=== PATIENT | female | born 1945 | race Caucasian/White ===

== ENCOUNTER 2016-08-25 20:48 | Inpatient (IN) | payer MEDICARE, OTHER ==
[~2016-08-25] VITALS: Ht 162.6 cm; Wt 75.7 kg
[2016-08-25] MEDS ORDERED: IBUPROFEN 200 MG TABLET PO ONE (21:30)
[2016-08-25] MEDS ORDERED: SODIUM CHLORIDE 0.9% 1,000ML IVBOLUS ONE ×2 (21:30→23:00)
[2016-08-25] MEDS ORDERED: IBUPROFEN 200 MG TABLET ONE (21:45)
[2016-08-25 21:55] LABS: ASPARTATE AMINO TRANSFERASE 122 U/L (15-37); BLOOD UREA NITROGEN 31 mg/dL (7-18)
[2016-08-25] MEDS ORDERED: OMNIPAQUE 350 MG/ML, 100ML BOTTLE ONE (22:00)
[2016-08-25] MEDS ORDERED: METF500T4 PO (22:22)
[2016-08-25] MEDS ORDERED: LISI40TA PO (22:23)
[2016-08-25] MEDS ORDERED: ATOR40TA78 PO (22:23)
[2016-08-25] MEDS ORDERED: AMLO5TAB2 PO (22:23)
[2016-08-25] MEDS ORDERED: CLOP75TA22 PO (22:23)
[2016-08-25] MEDS ORDERED: METO50TA82 PO (22:24)
[2016-08-25] MEDS ORDERED: PIPERACILLIN/TAZO/PMX 4.5GM 100 ML IV ONE (23:00)
[2016-08-26 00:23] VITALS: BP 102/38
[2016-08-26] MEDS ORDERED: BISACODYL 10 MG SUPP PR PRN (00:30)
[2016-08-26] MEDS ORDERED: VANCOMYCIN PER PHARMACY MC PRN ×2 (00:30→15:00)
[2016-08-26] MEDS ORDERED: POLYETHYLENE GLYCOL 17 GM PACKET PO PRN (00:30)
[2016-08-26] MEDS ORDERED: PHARMACOKINETIC MONITORING MC PRN (00:30)
[2016-08-26] MEDS ORDERED: ONDANSETRON 2MG/ML, 2ML IVPush PRN (00:30)
[2016-08-26 00:50] LABS: HEPATITIS C VIRUS ANTIBODY Nonreactive (Nonreactive)
[2016-08-26] MEDS: VANCOMYCIN 1,500 MG in SODIUM CHLORIDE 0.9% 250 ML IV SCH (01:41)
[2016-08-26] MEDS: HEPARIN 5,000 UNITS/ML, 1ML SQ SCH ×3 (01:42→16:36)
[2016-08-26] MEDS: SODIUM CHLORIDE 0.9% 1,000 ML IV SCH ×5 (01:42→21:47)
[2016-08-26 03:00] VITALS: BP 80/41
[2016-08-26 05:52] LABS: BLOOD UREA NITROGEN 29 mg/dL (7-18)
[2016-08-26 05:56] LABS: ASPARTATE AMINO TRANSFERASE 69 U/L (15-37)
[2016-08-26] MEDS: PIPERACILLIN/TAZO/PMX 3.375GM 50 ML IV SCH ×3 (06:28→18:03)
[2016-08-26 06:59] LABS: DIFF TOTAL CELLS COUNTED 100 CELL DIFF
[2016-08-26 07:02] LABS: LARGE PLATELETS 1+; VERIFY COUNTS? YES
[2016-08-26 08:00] VITALS: BP 97/47
[2016-08-26] MEDS: CLOPIDOGREL 75 MG TABLET PO SCH (08:18)
[2016-08-26] MEDS: SENNA/DOCUSATE TABLET PO SCH (08:18)
[2016-08-26 13:35] VITALS: BP_SYST 99; BP_DIAS 51; BP_DIAS 91
[2016-08-26 20:21] VITALS: BP 114/50
[2016-08-27] MEDS: PIPERACILLIN/TAZO/PMX 3.375GM 50 ML IV SCH ×4 (00:18→18:18)
[2016-08-27] MEDS: HEPARIN 5,000 UNITS/ML, 1ML SQ SCH ×3 (00:23→16:45)
[2016-08-27] MEDS: VANCOMYCIN 1,500 MG in SODIUM CHLORIDE 0.9% 250 ML IV SCH (02:24)
[2016-08-27 03:04] VITALS: BP 108/49
[2016-08-27 05:14] LABS: BLOOD UREA NITROGEN 23 mg/dL (7-18)
[2016-08-27 05:19] LABS: ASPARTATE AMINO TRANSFERASE 63 U/L (15-37)
[2016-08-27] MEDS: SODIUM CHLORIDE 0.9% 1,000 ML IV SCH ×2 (06:44→16:45)
[2016-08-27] MEDS: SENNA/DOCUSATE TABLET PO SCH (09:20)
[2016-08-27] MEDS: CLOPIDOGREL 75 MG TABLET PO SCH (09:20)
[2016-08-27] MEDS: ONDANSETRON 2MG/ML, 2ML IVPush PRN (10:45)
[2016-08-28] MEDS: PIPERACILLIN/TAZO/PMX 3.375GM 50 ML IV SCH ×2 (00:35→06:15)
[2016-08-28] MEDS: SODIUM CHLORIDE 0.9% 1,000 ML IV SCH ×4 (01:00→20:35)
[2016-08-28] MEDS: VANCOMYCIN 1,500 MG in SODIUM CHLORIDE 0.9% 250 ML IV SCH (01:40)
[2016-08-28] MEDS: HEPARIN 5,000 UNITS/ML, 1ML SQ SCH ×3 (04:28→12:17)
[2016-08-28] MEDS: CLOPIDOGREL 75 MG TABLET PO SCH (09:30)
[2016-08-28] MEDS: SENNA/DOCUSATE TABLET PO SCH (09:30)
[2016-08-28 13:20] VITALS: BP 113/73
[2016-08-28] MEDS ORDERED: ERTAPENEM 1 GM in SODIUM CHLORIDE 0.9% 50 ML IV SCH (15:30)
[2016-08-28] MEDS: LACTOBACILLUS CHEW TABLET PO SCH ×2 (18:31→20:35)
[2016-08-28] MEDS ORDERED: OMNIPAQUE 350 MG/ML, 100ML BOTTLE ONE (18:37)
[2016-08-28 18:41] VITALS: BP 142/78
[2016-08-29] MEDS: HEPARIN 5,000 UNITS/ML, 1ML SQ SCH ×3 (00:36→16:09)
[2016-08-29] MEDS: ONDANSETRON 2MG/ML, 2ML IVPush PRN (01:24)
[2016-08-29 01:50] VITALS: BP 137/78
[2016-08-29] MEDS: SODIUM CHLORIDE 0.9% 1,000 ML IV SCH (04:35)
[2016-08-29 05:54] LABS: ASPARTATE AMINO TRANSFERASE 33 U/L (15-37); BLOOD UREA NITROGEN 10 mg/dL (7-18)
[2016-08-29 06:13] LABS: ACETAMINOPHEN < 2 mcg/mL (10-30)
[2016-08-29 06:50] VITALS: BP 118/68
[2016-08-29] MEDS: SENNA/DOCUSATE TABLET PO SCH (08:48)
[2016-08-29] MEDS: CLOPIDOGREL 75 MG TABLET PO SCH (08:49)
[2016-08-29] MEDS: LACTOBACILLUS CHEW TABLET PO SCH ×3 (08:49→20:49)
[2016-08-29 14:32] VITALS: BP 130/76
[2016-08-29] MEDS: ERTAPENEM 1 GM in SODIUM CHLORIDE 0.9% 100 ML IV SCH (16:46)
[2016-08-29 18:41] VITALS: BP 159/81
[2016-08-29 20:55] LABS: ASPARTATE AMINO TRANSFERASE 34 U/L (15-37); BLOOD UREA NITROGEN 15 mg/dL (7-18)
[2016-08-30] MEDS: HEPARIN 5,000 UNITS/ML, 1ML SQ SCH ×2 (00:23→08:30)
[2016-08-30 01:05] VITALS: BP 148/75
[2016-08-30 05:58] LABS: BLOOD UREA NITROGEN 8 mg/dL (7-18)
[2016-08-30 07:52] VITALS: BP 172/81
[2016-08-30] MEDS ORDERED: METOPROLOL TARTRATE 50 MG TABLET PO SCH (09:00)
[2016-08-30] MEDS ORDERED: AMLODIPINE 5 MG TABLET PO SCH (09:00)
[2016-08-30] MEDS: CLOPIDOGREL 75 MG TABLET PO SCH (09:45)
[2016-08-30] MEDS: METOPROLOL TARTRATE 50 MG TABLET PO SCH ×2 (09:45→17:32)
[2016-08-30] MEDS: SENNA/DOCUSATE TABLET PO SCH (09:46)
[2016-08-30] MEDS: AMLODIPINE 5 MG TABLET PO SCH ×2 (09:46→20:08)
[2016-08-30] MEDS: LISINOPRIL 20 MG TABLET PO SCH (09:46)
[2016-08-30] MEDS: LACTOBACILLUS CHEW TABLET PO SCH ×3 (09:46→20:07)
[2016-08-30] MEDS: metFORMIN 500 MG TABLET PO SCH ×2 (11:00→20:08)
[2016-08-30 13:36] VITALS: BP 155/85
[2016-08-30] MEDS: ERTAPENEM 1 GM in SODIUM CHLORIDE 0.9% 100 ML IV SCH (17:27)
[2016-08-30 20:11] VITALS: BP 156/65
[2016-08-31 02:30] VITALS: BP 150/72
[2016-08-31 05:07] LABS: BLOOD UREA NITROGEN 6 mg/dL (7-18)
[2016-08-31 05:25] LABS: ASPARTATE AMINO TRANSFERASE 34 U/L (15-37)
[2016-08-31] MEDS: METOPROLOL TARTRATE 50 MG TABLET PO SCH ×3 (06:00→17:58)
[2016-08-31] MEDS: ONDANSETRON 2MG/ML, 2ML IVPush PRN (06:49)
[2016-08-31 07:37] VITALS: BP 143/87
[2016-08-31] MEDS ORDERED: ERTA1VIA IV (08:48)
[2016-08-31] MEDS ORDERED: POTASSIUM CHLORIDE 20 MEQ TAB.ER.PRT PO ONE (09:00)
[2016-08-31] MEDS: SENNA/DOCUSATE TABLET PO SCH (09:00)
[2016-08-31] MEDS: LISINOPRIL 20 MG TABLET PO SCH (09:06)
[2016-08-31] MEDS: CLOPIDOGREL 75 MG TABLET PO SCH (09:06)
[2016-08-31] MEDS: AMLODIPINE 5 MG TABLET PO SCH (09:07)
[2016-08-31] MEDS: LACTOBACILLUS CHEW TABLET PO SCH ×2 (09:07→17:00)
[2016-08-31] MEDS: metFORMIN 500 MG TABLET PO SCH (09:07)
[2016-08-31 13:50] VITALS: BP 112/71
[2016-08-31] MEDS: ERTAPENEM 1 GM in SODIUM CHLORIDE 0.9% 100 ML IV SCH (16:56)
[2016-08-31 18:43] VITALS: BP 133/84
[2016-08-31 18:53] VITALS: BP 169/81
[2016-08-31 20:01] VITALS: BP 143/70
== END 2016-08-31 20:25 | disposition home or self-care (01) | DRG 871 ==
LOC: ED 22:52 → EDIP 23:15 → 4NOR 08-26 00:05
PROVIDERS: ADMIT Internal Medicine
PROC: B5181ZA Fluoroscopy of Superior Vena Cava using Low Osmolar Contrast, Guidance (ICD-10-PCS; principal; 2016-08-30)
PROC: 02HV33Z Insertion of Infusion Device into Superior Vena Cava, Percutaneous Approach (ICD-10-PCS; 2016-08-30)
PROC: B548ZZA Ultrasonography of Superior Vena Cava, Guidance (ICD-10-PCS; 2016-08-30)
DX: A40.1 Sepsis due to streptococcus, group B (principal); E43 Unspecified severe protein-calorie malnutrition; N17.0 Acute kidney failure with tubular necrosis; K72.00 Acute and subacute hepatic failure without coma; I38 Endocarditis, valve unspecified; D64.9 Anemia, unspecified; D69.6 Thrombocytopenia, unspecified; E78.00 Pure hypercholesterolemia, unspecified; E78.5 Hyperlipidemia, unspecified; E87.6 Hypokalemia; G14 Postpolio syndrome; I11.9 Hypertensive heart disease without heart failure; I35.8 Other nonrheumatic aortic valve disorders; I71.4 Abdominal aortic aneurysm, without rupture; I87.2 Venous insufficiency (chronic) (peripheral); E11.51 Type 2 diabetes mellitus with diabetic peripheral angiopathy without gangrene; J44.9 Chronic obstructive pulmonary disease, unspecified; K57.30 Diverticulosis of large intestine without perforation or abscess without bleeding; K80.20 Calculus of gallbladder without cholecystitis without obstruction; K82.8 Other specified diseases of gallbladder; N21.0 Calculus in bladder; Z82.49 Family history of ischemic heart disease and other diseases of the circulatory system; Z83.3 Family history of diabetes mellitus; Z87.891 Personal history of nicotine dependence; Z79.899 Other long term (current) drug therapy; I73.9 Peripheral vascular disease, unspecified
CPT/HCPCS: 36415; 36569; 71010; 71275; 74177; 76700; 76937; 77001; 80048; 80053; 80074; 80307; 81003; 82977; 83036; 83605; 83880; 84145; 85025; 85610; 85651; 86140; 86704; 86706; 86708; 86803; 87040; 87147; 87181; 87340; 93005; 93306; 96361; 96365; J1335; J1644; J2405; J2543; J3370; Q9967; C1751; J7030; J7050

== ENCOUNTER 2016-10-06 11:26 | Inpatient (IN) | payer MEDICARE ==
[~2016-10-06] VITALS: Ht 162.6 cm; Wt 79.3 kg
[~2016-10-06 11:26] MED LIST: AMLO5TAB2 PO; ATOR40TA78 PO; CLOP75TA22 PO; ERTA1VIA IV; LISI40TA PO; METF500T4 PO; METO50TA82 PO
[2016-10-06] MEDS ORDERED: SODIUM CHLORIDE FLUSH 10ML SYR IVF ONE (12:30)
[2016-10-06 12:46] LABS: ABG COLLECTION SITE RIGHT RADIAL; COLLATERAL CIRCULATION TESTING NORMAL
[2016-10-06 12:56] LABS: ASPARTATE AMINO TRANSFERASE 33 U/L (15-37); BLOOD UREA NITROGEN 16 mg/dL (7-18)
[2016-10-06 13:00] LABS: IS PT STATUS REG ER OR PRE ER? YES
[2016-10-06] MEDS ORDERED: PIPERACILLIN/TAZO/PMX 3.375GM 50 ML IVPB ONE (13:00)
[2016-10-06] MEDS ORDERED: VANCOMYCIN PER PHARMACY MC ONE (13:00)
[2016-10-06] MEDS ORDERED: OMEG1CAP6 PO (13:12)
[2016-10-06] MEDS ORDERED: METO50TA82 PO (13:12)
[2016-10-06] MEDS ORDERED: ALBU8.5H3 INH (13:12)
[2016-10-06] MEDS ORDERED: LANS15CA45 PO (13:12)
[2016-10-06] MEDS ORDERED: MULT1CAP19 PO (13:12)
[2016-10-06] MEDS ORDERED: PIPERACILLIN/TAZO/PMX 3.375GM 50 ML ONE (13:15)
[2016-10-06] MEDS ORDERED: PHARMACOKINETIC CONSULTATION MC ONE (13:30)
[2016-10-06] MEDS ORDERED: VANCOMYCIN 1,300 MG in SODIUM CHLORIDE 0.9% 250 ML IV ONE (13:30)
[2016-10-06 14:53] VITALS: BP 145/74
[2016-10-06] MEDS ORDERED: UMEC62.5 INH (15:55)
[2016-10-06] MEDS ORDERED: morphine SULFATE 10 MG/ML, 1ML IVPush PRN (17:00)
[2016-10-06] MEDS ORDERED: TEMAZEPAM 15 MG CAPSULE PO PRN (17:00)
[2016-10-06] MEDS ORDERED: hydrALAzine 20 MG/ML, 1ML IVPush PRN (17:00)
[2016-10-06] MEDS ORDERED: HYDROcodone/APAP 5/325 TABLET PO PRN (17:00)
[2016-10-06] MEDS ORDERED: ACETAMINOPHEN 325 MG TABLET PO PRN (17:00)
[2016-10-06] MEDS ORDERED: ONDANSETRON 2MG/ML, 2ML IVPush PRN (17:00)
[2016-10-06] MEDS ORDERED: OMNIPAQUE 350 MG/ML, 100ML BOTTLE ONE (18:52)
[2016-10-06 18:58] VITALS: BP 127/66
[2016-10-06] MEDS: CEFTRIAXONE PMX 1GM/50ML 50 ML IV SCH (20:02)
[2016-10-06] MEDS: ENOXAPARIN 40 MG/0.4 ML SQ SCH (20:03)
[2016-10-06] MEDS: METOPROLOL TARTRATE 50 MG TABLET PO SCH (22:01)
[2016-10-06] MEDS: ATORVASTATIN 40 MG TABLET PO SCH (22:01)
[2016-10-06] MEDS: AMLODIPINE 5 MG TABLET PO SCH (22:01)
[2016-10-06] MEDS: AZITHROMYCIN 500 MG in SODIUM CHLORIDE 0.9% 250 ML IV SCH (22:02)
[2016-10-07 01:20] VITALS: BP 102/54
[2016-10-07] MEDS ORDERED: ALBUTEROL SULFATE 2.5 MG/3 ML ONE (01:36)
[2016-10-07] MEDS ORDERED: ALBUTEROL SULFATE 2.5 MG/3 ML NPPB PRN (02:00)
[2016-10-07 06:44] LABS: ASPARTATE AMINO TRANSFERASE 25 U/L (15-37); BLOOD UREA NITROGEN 13 mg/dL (7-18)
[2016-10-07] MEDS: ALBUTEROL SULFATE 2.5 MG/3 ML NPPB SCH ×2 (07:01→21:20)
[2016-10-07 08:11] VITALS: BP 105/61
[2016-10-07] MEDS: TEMPLATE NON-FORMULARY MED. (Umeclidinium Bromide (Incruse Ellipta) 1 PUFF) INH SCH (08:41)
[2016-10-07] MEDS: METOPROLOL TARTRATE 50 MG TABLET PO SCH ×2 (08:42→20:38)
[2016-10-07] MEDS: AMLODIPINE 5 MG TABLET PO SCH ×2 (08:43→20:38)
[2016-10-07] MEDS: PANTOPROZOLE 40MG TABLET PO SCH (08:43)
[2016-10-07] MEDS: LISINOPRIL 20 MG TABLET PO SCH (08:43)
[2016-10-07] MEDS: CLOPIDOGREL 75 MG TABLET PO SCH (08:43)
[2016-10-07] MEDS: MULTIVITAMIN 1 TABLET PO SCH (08:43)
[2016-10-07 14:26] VITALS: BP 94/54
[2016-10-07] MEDS ORDERED: MAGNESIUM SULFATE PMX 2GM/50ML 50 ML IV ONE (14:30)
[2016-10-07] MEDS ORDERED: POTASSIUM CHLORIDE 20 MEQ TAB.ER.PRT PO ONE (15:00)
[2016-10-07] MEDS ORDERED: FUROSEMIDE 40 MG/4 ML IV ONE (15:00)
[2016-10-07 15:10] VITALS: BP 127/65
[2016-10-07 19:17] VITALS: BP 116/60
[2016-10-07] MEDS: CEFTRIAXONE PMX 1GM/50ML 50 ML IV SCH (20:38)
[2016-10-07] MEDS: ATORVASTATIN 40 MG TABLET PO SCH (20:38)
[2016-10-07] MEDS: ENOXAPARIN 40 MG/0.4 ML SQ SCH (20:38)
[2016-10-07] MEDS: AZITHROMYCIN 500 MG in SODIUM CHLORIDE 0.9% 250 ML IV SCH (22:05)
[2016-10-08 02:54] VITALS: BP 96/53
[2016-10-08 05:07] LABS: BLOOD UREA NITROGEN 16 mg/dL (7-18)
[2016-10-08 07:12] VITALS: BP 105/58
[2016-10-08] MEDS: TEMPLATE NON-FORMULARY MED. (Umeclidinium Bromide (Incruse Ellipta) 1 PUFF) INH SCH (08:29)
[2016-10-08] MEDS: AMLODIPINE 5 MG TABLET PO SCH ×2 (08:29→21:47)
[2016-10-08] MEDS: METOPROLOL TARTRATE 50 MG TABLET PO SCH ×2 (08:29→21:47)
[2016-10-08] MEDS: PANTOPROZOLE 40MG TABLET PO SCH (08:30)
[2016-10-08] MEDS: LISINOPRIL 20 MG TABLET PO SCH (08:30)
[2016-10-08] MEDS: MULTIVITAMIN 1 TABLET PO SCH (08:30)
[2016-10-08] MEDS: CLOPIDOGREL 75 MG TABLET PO SCH (08:30)
[2016-10-08] MEDS: ALBUTEROL SULFATE 2.5 MG/3 ML NPPB SCH ×2 (09:00→20:22)
[2016-10-08 12:37] VITALS: BP 125/72
[2016-10-08 18:59] VITALS: BP 124/61
[2016-10-08] MEDS: ENOXAPARIN 40 MG/0.4 ML SQ SCH (21:47)
[2016-10-08] MEDS: CEFTRIAXONE PMX 1GM/50ML 50 ML IV SCH (21:47)
[2016-10-08] MEDS: ATORVASTATIN 40 MG TABLET PO SCH (21:47)
[2016-10-08] MEDS: AZITHROMYCIN 500 MG in SODIUM CHLORIDE 0.9% 250 ML IV SCH (22:47)
[2016-10-09 00:59] VITALS: BP 94/50
[2016-10-09 08:40] VITALS: BP 136/57
[2016-10-09] MEDS: TEMPLATE NON-FORMULARY MED. (Umeclidinium Bromide (Incruse Ellipta) 1 PUFF) INH SCH (08:45)
[2016-10-09] MEDS: CLOPIDOGREL 75 MG TABLET PO SCH (08:46)
[2016-10-09] MEDS: AMLODIPINE 5 MG TABLET PO SCH (08:46)
[2016-10-09] MEDS: MULTIVITAMIN 1 TABLET PO SCH (08:46)
[2016-10-09] MEDS: METOPROLOL TARTRATE 50 MG TABLET PO SCH (08:46)
[2016-10-09] MEDS: PANTOPROZOLE 40MG TABLET PO SCH (08:47)
[2016-10-09] MEDS: LISINOPRIL 20 MG TABLET PO SCH (08:47)
[2016-10-09] MEDS: ALBUTEROL SULFATE 2.5 MG/3 ML NPPB SCH (10:09)
[2016-10-09] MEDS ORDERED: GUAI-103 PO (10:35)
[2016-10-09] MEDS ORDERED: TRAM50TA2 PO (10:35)
[2016-10-09] MEDS ORDERED: CEFD300C37 PO (10:35)
[2016-10-09] MEDS ORDERED: AZIT500T77 PO (10:35)
[2016-10-09 12:54] VITALS: BP 125/62
== END 2016-10-09 16:00 | disposition home or self-care (01) | DRG 189 ==
LOC: ED 13:20 → EDIP 13:55 → 3NE 14:39 → DCLOUNGE 10-09 15:00
PROVIDERS: ADMIT Hospitalist; ATTEND Internal Medicine
DX: J96.01 Acute respiratory failure with hypoxia (principal); E43 Unspecified severe protein-calorie malnutrition; J15.9 Unspecified bacterial pneumonia; M48.54XA Collapsed vertebra, not elsewhere classified, thoracic region, initial encounter for fracture; J90 Pleural effusion, not elsewhere classified; J44.0 Chronic obstructive pulmonary disease with (acute) lower respiratory infection; E11.9 Type 2 diabetes mellitus without complications; E78.00 Pure hypercholesterolemia, unspecified; E78.5 Hyperlipidemia, unspecified; I11.9 Hypertensive heart disease without heart failure; I73.9 Peripheral vascular disease, unspecified; K21.9 Gastro-esophageal reflux disease without esophagitis; K57.30 Diverticulosis of large intestine without perforation or abscess without bleeding; Z86.12 Personal history of poliomyelitis; Z87.891 Personal history of nicotine dependence; Z99.81 Dependence on supplemental oxygen; Z80.8 Family history of malignant neoplasm of other organs or systems; Z95.828 Presence of other vascular implants and grafts; Z82.49 Family history of ischemic heart disease and other diseases of the circulatory system; Z68.30 Body mass index [BMI] 30.0-30.9, adult
CPT/HCPCS: 36415; 36600; 71010; 71275; 80048; 80053; 81003; 82803; 83605; 83735; 83880; 84100; 84484; 85025; 87040; 93005; 94640; 96365; J0456; J0696; J1650; J1940; J2543; J3370; J7613; Q9967; J3475; J7050

== ENCOUNTER → 2016-12-24 | Outpatient (CLI) | payer MEDICARE ==
[~2016-12-24] MED LIST changes: +ALBU8.5H8 INH; +AZIT500T5 PO; +CEFD300C37 PO; -CLOP75TA22 PO; +CLOP75TA52 PO; +GUAI-103 PO; +LANS15CA60 PO; +MULT1CAP19 PO; +OMEG1CAP6 PO; +TRAM50TA2 PO; +UMEC62.5 INH
== END | disposition home or self-care (01) ==
LOC: CFH 07:41
PROVIDERS: ATTEND Internal Medicine Cardiovascular Disease
DX: I35.0 Nonrheumatic aortic (valve) stenosis (principal); I10 Essential (primary) hypertension; J18.9 Pneumonia, unspecified organism; E78.5 Hyperlipidemia, unspecified; E11.9 Type 2 diabetes mellitus without complications; Z87.891 Personal history of nicotine dependence
CPT/HCPCS: 78452; 93017; 93306; A9502

== ENCOUNTER → 2016-12-25 | Outpatient (CLI) | payer MEDICARE ==
[~2016-12-25] MED LIST changes: +REGADENOSON 0.4 MG/5 ML SYRINGE ONE
== END | disposition home or self-care (01) ==
LOC: CARD 16:02
PROVIDERS: ATTEND Internal Medicine Cardiovascular Disease
DX: J44.9 Chronic obstructive pulmonary disease, unspecified (principal); I10 Essential (primary) hypertension
CPT/HCPCS: 94060; 94726; 94729; J2785

== ENCOUNTER → 2017-01-11 | Outpatient (CLI) | payer MEDICARE ==
[~2017-01-11] MED LIST changes: -REGADENOSON 0.4 MG/5 ML SYRINGE ONE
== END | disposition home or self-care (01) ==
LOC: CFH 08:02
PROVIDERS: ATTEND Family Medicine
DX: K76.0 Fatty (change of) liver, not elsewhere classified (principal); K80.20 Calculus of gallbladder without cholecystitis without obstruction
CPT/HCPCS: 76705

== ENCOUNTER → 2017-01-17 | Outpatient (CLI) | payer MEDICARE | END | disposition home or self-care (01) | LOC: RAD 09:37 | PROVIDERS: ATTEND Family Medicine | DX: R93.7 Abnormal findings on diagnostic imaging of other parts of musculoskeletal system (principal); R79.89 Other specified abnormal findings of blood chemistry | CPT/HCPCS: 78306; A9503 ==

== ENCOUNTER 2017-03-15 07:15 | Day surgery (SDC) | payer MEDICARE ==
[~2017-03-15] VITALS: Ht 162.6 cm; Wt 69.7 kg
[2017-03-15 08:02] VITALS: BP 160/82
[2017-03-15] MEDS ORDERED: SODIUM CHLORIDE 0.9% 1,000 ML IV SCH (08:20)
[2017-03-15] MEDS ORDERED: AMLO5TAB2 PO (08:25)
[2017-03-15] MEDS ORDERED: METF500T4 PO (08:25)
[2017-03-15] MEDS ORDERED: LISI40TA PO (08:25)
[2017-03-15] MEDS ORDERED: MULT-257 PO (08:25)
[2017-03-15] MEDS ORDERED: OMEG1CAP23 PO (08:25)
[2017-03-15] MEDS ORDERED: ATOR40TA78 PO (08:25)
[2017-03-15] MEDS ORDERED: LANS15CA60 PO (08:25)
[2017-03-15] MEDS ORDERED: METO50TA82 PO (08:25)
[2017-03-15] MEDS ORDERED: LIDOCAINE 2%, 20ML ONE (08:29)
[2017-03-15] MEDS ORDERED: FENTANYL PF 100 MCG/2ML ONE ×2 (09:32→09:33)
[2017-03-15] MEDS ORDERED: FLUMAZENIL 0.1 MG/1 ML, 5ML ONE (09:33)
[2017-03-15] MEDS ORDERED: MIDAZOLAM 1 MG/ML, 5ML ONE (09:33)
[2017-03-15] MEDS ORDERED: NALOXONE 1 MG/ML, 2ML ONE (09:33)
== END 2017-03-15 17:00 ==
LOC: OUT 07:15
PROVIDERS: ATTEND Internal Medicine Gastroenterology
DX: K74.0 Hepatic fibrosis (principal); K75.89 Other specified inflammatory liver diseases; J44.9 Chronic obstructive pulmonary disease, unspecified; E11.9 Type 2 diabetes mellitus without complications; E78.00 Pure hypercholesterolemia, unspecified; I10 Essential (primary) hypertension; Z98.890 Other specified postprocedural states; Z87.891 Personal history of nicotine dependence
CPT/HCPCS: 36415; 47000; 76942; 85610; 88307; 88313; 99156; 99157; J2250; J3010; J3490; J7030; J2310

== ENCOUNTER → 2017-04-05 | Outpatient (CLI) | payer MEDICARE ==
[~2017-04-05] MED LIST changes: +MULT-257 PO; +OMEG1CAP23 PO
== END | disposition home or self-care (01) ==
LOC: CFH 07:05
PROVIDERS: ATTEND Internal Medicine Gastroenterology
DX: K80.20 Calculus of gallbladder without cholecystitis without obstruction (principal); R74.8 Abnormal levels of other serum enzymes
CPT/HCPCS: 74181

== ENCOUNTER 2017-04-13 11:36 | Inpatient (IN) | payer MEDICARE ==
[~2017-04-13] VITALS: Ht 162.6 cm; Wt 68.2 kg
[2017-04-13] MEDS ORDERED: SODIUM CHLORIDE FLUSH 10ML SYR IVF ONE (12:30)
[2017-04-13] MEDS ORDERED: SODIUM CHLORIDE 0.9% 1,000ML IVBOLUS ONE (12:30)
[2017-04-13] MEDS ORDERED: ALBUTEROL/IPRATROPIUM 2.5MG/0.5MG, 3 ML NPPB ONE (12:30)
[2017-04-13] MEDS ORDERED: methylPREDNISolone SOD SUCC 125 MG/2 ML IVP ONE (12:30)
[2017-04-13] MEDS ORDERED: methylPREDNISolone SOD SUCC 125 MG/2 ML ONE (12:34)
[2017-04-13 12:40] LABS: BASOPHILS # (AUTO) 0.01 x10^3/uL (0-0.1); BASOPHILS % (AUTO) 0 % (0-1); EOSINOPHILS % (AUTO) 0 % (1-7); LYMPHOCYTES # (AUTO) 0.47 x10^3/uL (1-3.4); LYMPHOCYTES % (AUTO) 4 % (22-44); MD NO; MEAN CORPUSCULAR HGB CONC 33.7 g/dL (32.4-35.8); MEAN CORPUSCULAR VOLUME 83.1 fL (80-100); MEAN PLATELET VOLUME 10.2 fL (7.4-10.4); MONOCYTES % (AUTO) 10 % (2-9); NEUTROPHILS # (AUTO) 10.21 x10^3/uL (1.8-6.8); NEUTROPHILS % (AUTO) 86 % (42-75); PLATELET COUNT 147 x10^3/uL (130-400); RED BLOOD COUNT 4.97 x10^6/uL (3.82-5.3); RED CELL DISTRIBUTION WIDTH 14.8 % (9.6-15.2)
[2017-04-13 12:46] LABS: RAPID INFLUENZA A Negative (Negative); RAPID INFLUENZA B Negative (Negative)
[2017-04-13 12:49] LABS: INTERNATIONAL NORMALIZED RATIO 0.98 (0.93-1.1); PROTHROMBIN TIME 10.2 Seconds (9.6-11.5)
[2017-04-13 12:50] LABS: ALBUMIN 3.4 g/dL (3.4-5.0); ANION GAP 7 mmol/L (5-15); CALCIUM 8.5 mg/dL (8.5-10.1); CHLORIDE 102 mmol/L (98-107)
[2017-04-13 12:55] LABS: ALANINE AMINOTRANSFERASE 53 U/L (12-78); ALKALINE PHOSPHATASE 519 U/L (45-117); BILIRUBIN,TOTAL 0.5 mg/dL (0.2-1.0); CREATININE 1.36 mg/dL (0.55-1.02); TOTAL PROTEIN 8.1 g/dL (6.4-8.2)
[2017-04-13] MEDS ORDERED: SODIUM CHLORIDE 0.9%, 500ML IVBOLUS ONE (13:30)
[2017-04-13] MEDS ORDERED: AZITHROMYCIN 500 MG in SODIUM CHLORIDE 0.9% 250 ML IV ONE (14:00)
[2017-04-13] MEDS ORDERED: CEFTRIAXONE PMX 1GM/50ML 50 ML IV ONE (14:00)
[2017-04-13] MEDS ORDERED: CEFTRIAXONE PMX 1GM/50ML 50 ML ONE (14:31)
[2017-04-13] MEDS ORDERED: DOCUSATE 100 MG CAPSULE PO PRN (17:00)
[2017-04-13] MEDS ORDERED: GUAIFENESIN/DM 200-20MG, 10ML UDC PO PRN (17:00)
[2017-04-13] MEDS ORDERED: PANTOPROZOLE 40MG TABLET PO PRN (17:00)
[2017-04-13] MEDS ORDERED: ONDANSETRON 2MG/ML, 2ML IVPush PRN (17:00)
[2017-04-13] MEDS ORDERED: POLYETHYLENE GLYCOL 17 GM PACKET PO PRN (17:00)
[2017-04-13] MEDS ORDERED: ACETAMINOPHEN 325 MG TABLET PO PRN (17:00)
[2017-04-13] MEDS: methylPREDNISolone SOD SUCC 40 MG/ML IV SCH (17:56)
[2017-04-13] MEDS: ENOXAPARIN 40 MG/0.4 ML SQ SCH (17:56)
[2017-04-13] MEDS: SODIUM CHLORIDE 0.9% 1,000 ML IV SCH (17:56)
[2017-04-13 19:17] VITALS: BP 103/56
[2017-04-13] MEDS ORDERED: INSULIN ASPART 100 UNITS/ML, PEN SQ-INSULIN SCH (21:00)
[2017-04-13] MEDS: ATORVASTATIN 40 MG TABLET PO SCH (21:06)
[2017-04-13] MEDS: DOXYCYCLINE 50 MG/5 ML ORAL SUSP PO SCH (21:07)
[2017-04-13] MEDS: AMLODIPINE 5 MG TABLET PO SCH (21:07)
[2017-04-13] MEDS: INSULIN LISPRO 100 UNITS/ML, PEN SQ-INSULIN SCH (21:07)
[2017-04-13] MEDS: METOPROLOL TARTRATE 50 MG TABLET PO SCH (21:08)
[2017-04-14 01:02] VITALS: BP 100/61
[2017-04-14] MEDS ORDERED: ALBUTEROL/IPRATROPIUM 2.5MG/0.5MG, 3 ML NPPB PRN (02:00)
[2017-04-14] MEDS: methylPREDNISolone SOD SUCC 40 MG/ML IV SCH ×3 (02:18→16:49)
[2017-04-14 05:31] LABS: BASOPHILS % (AUTO) 0 % (0-1); EOSINOPHILS % (AUTO) 0 % (1-7); LYMPHOCYTES # (AUTO) 0.32 x10^3/uL (1-3.4); LYMPHOCYTES % (AUTO) 7 % (22-44); MD NO; MEAN CORPUSCULAR HEMOGLOBIN 28.3 pg (27.0-34.8); MEAN CORPUSCULAR HGB CONC 33.9 g/dL (32.4-35.8); MEAN CORPUSCULAR VOLUME 83.5 fL (80-100); MEAN PLATELET VOLUME 10.3 fL (7.4-10.4); MONOCYTES # (AUTO) 0.17 x10^3/uL (0.2-0.8); MONOCYTES % (AUTO) 4 % (2-9); NEUTROPHILS # (AUTO) 4.05 x10^3/uL (1.8-6.8); NEUTROPHILS % (AUTO) 89 % (42-75); PLATELET COUNT 109 x10^3/uL (130-400); RED BLOOD COUNT 4.37 x10^6/uL (3.82-5.3); RED CELL DISTRIBUTION WIDTH 15.1 % (9.6-15.2)
[2017-04-14 05:39] LABS: CHLORIDE 110 mmol/L (98-107)
[2017-04-14 05:47] LABS: ANION GAP 8 mmol/L (5-15); CALCIUM 8.4 mg/dL (8.5-10.1); CREATININE 0.98 mg/dL (0.55-1.02)
[2017-04-14] MEDS: SODIUM CHLORIDE 0.9% 1,000 ML IV SCH (05:54)
[2017-04-14] MEDS: ALBUTEROL/IPRATROPIUM 2.5MG/0.5MG, 3 ML NPPB SCH ×4 (08:13→19:10)
[2017-04-14 08:23] VITALS: BP 142/71
[2017-04-14] MEDS: INSULIN LISPRO 100 UNITS/ML, PEN SQ-INSULIN SCH ×4 (08:34→20:34)
[2017-04-14] MEDS: OMEGA-3/FISH OIL CAPSULE PO SCH (10:02)
[2017-04-14] MEDS: AMLODIPINE 5 MG TABLET PO SCH ×2 (10:02→20:34)
[2017-04-14] MEDS: METOPROLOL TARTRATE 50 MG TABLET PO SCH ×2 (10:02→20:34)
[2017-04-14] MEDS: CLOPIDOGREL 75 MG TABLET PO SCH (10:02)
[2017-04-14] MEDS: MULTIVITAMIN 1 TABLET PO SCH (10:02)
[2017-04-14] MEDS: DOXYCYCLINE 50 MG/5 ML ORAL SUSP PO SCH ×2 (10:05→20:34)
[2017-04-14] MEDS: LISINOPRIL 20 MG TABLET PO SCH (10:06)
[2017-04-14 12:21] VITALS: BP 104/58
[2017-04-14] MEDS: ENOXAPARIN 40 MG/0.4 ML SQ SCH (16:49)
[2017-04-14 19:07] VITALS: BP 125/60
[2017-04-14] MEDS ORDERED: ALBUTEROL SULFATE 2.5 MG/3 ML ONE (19:15)
[2017-04-14] MEDS: ATORVASTATIN 40 MG TABLET PO SCH (20:37)
[2017-04-15 01:26] VITALS: BP 129/66
[2017-04-15] MEDS: methylPREDNISolone SOD SUCC 40 MG/ML IV SCH ×2 (02:15→09:37)
[2017-04-15] MEDS: ALBUTEROL/IPRATROPIUM 2.5MG/0.5MG, 3 ML NPPB SCH (06:50)
[2017-04-15 07:31] VITALS: BP 113/66
[2017-04-15] MEDS: INSULIN LISPRO 100 UNITS/ML, PEN SQ-INSULIN SCH (08:07)
[2017-04-15] MEDS: DOXYCYCLINE 50 MG/5 ML ORAL SUSP PO SCH (09:00)
[2017-04-15] MEDS: OMEGA-3/FISH OIL CAPSULE PO SCH (09:00)
[2017-04-15] MEDS ORDERED: DOXY50SY PO (09:01)
[2017-04-15] MEDS ORDERED: METH4TAB2 PO (09:01)
[2017-04-15] MEDS: METOPROLOL TARTRATE 50 MG TABLET PO SCH (09:36)
[2017-04-15] MEDS: MULTIVITAMIN 1 TABLET PO SCH (09:36)
[2017-04-15] MEDS: CLOPIDOGREL 75 MG TABLET PO SCH (09:37)
[2017-04-15] MEDS: LISINOPRIL 20 MG TABLET PO SCH (09:37)
[2017-04-15] MEDS: AMLODIPINE 5 MG TABLET PO SCH (09:37)
== END 2017-04-15 10:40 | disposition home or self-care (01) | DRG 682 ==
LOC: ED 13:41 → EDIP 14:18 → 3NE 15:25 → DCLOUNGE 04-15 10:36
PROVIDERS: ADMIT Hospitalist; ATTEND Hospitalist
DX: N17.9 Acute kidney failure, unspecified (principal); J96.01 Acute respiratory failure with hypoxia; J44.0 Chronic obstructive pulmonary disease with (acute) lower respiratory infection; J44.1 Chronic obstructive pulmonary disease with (acute) exacerbation; Z99.81 Dependence on supplemental oxygen; E11.9 Type 2 diabetes mellitus without complications; J20.9 Acute bronchitis, unspecified; I10 Essential (primary) hypertension; E78.00 Pure hypercholesterolemia, unspecified; K21.9 Gastro-esophageal reflux disease without esophagitis; M81.0 Age-related osteoporosis without current pathological fracture; Z79.02 Long term (current) use of antithrombotics/antiplatelets; Z87.01 Personal history of pneumonia (recurrent); Z87.891 Personal history of nicotine dependence
CPT/HCPCS: 36415; 71045; 71250; 80048; 80053; 82962; 83605; 83735; 83880; 84100; 84145; 85025; 85610; 85730; 87040; 87400; 93005; 94640; 96361; 96374; J0456; J0696; J1650; J7620; J1815; J2920; J2930; J7030; J7040; J7050

== ENCOUNTER → 2017-10-09 | Outpatient (CLI) | payer MEDICARE ==
[~2017-10-09] MED LIST changes: +CARV6.2512 PO; +DOXY100T PO; +DOXY50SY PO; -METF500T4 PO; +METF500T5 PO; +METH4TAB2 PO
== END | disposition home or self-care (01) ==
LOC: CVU 08:48
PROVIDERS: ATTEND Surgery Vascular Surgery
DX: I70.203 Unspecified atherosclerosis of native arteries of extremities, bilateral legs (principal); I10 Essential (primary) hypertension; E11.9 Type 2 diabetes mellitus without complications; E78.5 Hyperlipidemia, unspecified; Z87.891 Personal history of nicotine dependence
CPT/HCPCS: 93922; 93925

== ENCOUNTER → 2018-05-26 | Outpatient (CLI) | payer MEDICARE ==
[~2018-05-26] MED LIST changes: +AMLO-150 PO; -AMLO5TAB2 PO; +METF500T17 PO; -METF500T5 PO
== END | disposition home or self-care (01) ==
LOC: CVU 14:17
PROVIDERS: ATTEND Surgery Vascular Surgery
DX: I77.1 Stricture of artery (principal); I73.9 Peripheral vascular disease, unspecified; E11.9 Type 2 diabetes mellitus without complications; E78.5 Hyperlipidemia, unspecified; I10 Essential (primary) hypertension; Z87.891 Personal history of nicotine dependence
CPT/HCPCS: 93922; 93925

== ENCOUNTER → 2019-02-06 | Outpatient (CLI) | payer MEDICARE ==
[~2019-02-06] MED LIST changes: +AZIT500T10 PO; -AZIT500T5 PO
== END | disposition home or self-care (01) ==
LOC: CVU 12:41
PROVIDERS: ATTEND Surgery Vascular Surgery
DX: T82.9XXA Unspecified complication of cardiac and vascular prosthetic device, implant and graft, initial encounter (principal); I70.213 Atherosclerosis of native arteries of extremities with intermittent claudication, bilateral legs; I77.1 Stricture of artery; E11.9 Type 2 diabetes mellitus without complications; I10 Essential (primary) hypertension; E78.00 Pure hypercholesterolemia, unspecified; I70.90 Unspecified atherosclerosis; I73.9 Peripheral vascular disease, unspecified; J44.9 Chronic obstructive pulmonary disease, unspecified; Y83.8 Other surgical procedures as the cause of abnormal reaction of the patient, or of later complication, without mention of misadventure at the time of the procedure; Y92.89 Other specified places as the place of occurrence of the external cause; Z79.899 Other long term (current) drug therapy; Z86.12 Personal history of poliomyelitis; Z87.891 Personal history of nicotine dependence
CPT/HCPCS: 93922; 93925

== ENCOUNTER 2019-10-28 14:28 | Outpatient (CLI) | payer MEDICARE | END 2019-10-28 23:59 | disposition home or self-care (01) | LOC: CVU 14:28 | PROVIDERS: ATTEND Surgery Vascular Surgery | DX: I70.213 Atherosclerosis of native arteries of extremities with intermittent claudication, bilateral legs (principal) | CPT/HCPCS: 93922; 93925 ==

== ENCOUNTER → 2020-05-13 | Outpatient (CLI) | payer MEDICARE ==
[~2020-05-13] MED LIST changes: -LISI40TA PO; +LISI40TA9 PO
== END | disposition home or self-care (01) ==
LOC: CVU 12:31
PROVIDERS: ATTEND Surgery Vascular Surgery
DX: I70.291 Other atherosclerosis of native arteries of extremities, right leg (principal); I70.213 Atherosclerosis of native arteries of extremities with intermittent claudication, bilateral legs; E11.9 Type 2 diabetes mellitus without complications; E78.5 Hyperlipidemia, unspecified; I10 Essential (primary) hypertension; Z87.891 Personal history of nicotine dependence
CPT/HCPCS: 93922; 93925